=== PATIENT | female | born 1995 | race American Indian/Alaskan Native ===

== ENCOUNTER 2019-01-20 19:36 | Emergency (ER) | payer MEDICAID ==
[2019-01-20] MEDS ORDERED: TYLENOL ONE (19:45)
[2019-01-20] MEDS ORDERED: TYLENOL PO ONE (19:47)
--- NOTE | 2019-01-20 23:05 | Emergency Department Report ---
- General Chief Complaint: Upper Respiratory Infection Stated Complaint: FLU Time Seen by Provider: 01/20/19 22:29 Source: patient Mode of arrival: Ambulatory Limitations: No Limitations - History of Present Illness Initial Comments: 23-year-old -Congol[place] female presents to the emergency room for flulike symptoms to include cough and body aches for 2 days. Patient reports laying flat at night makes her cough worse and her nasal congestion worse. Patient pushes tried cegw-nxl-mnekilg medication which reports has not helped. Patient reports allergy to shellfish currently takes no medications on a daily basis has no past medical history. MD Complaint: cough, rhinorrhea, nasal congestion - Related Data Previous Rx's Medication Instructions Recorded Last Taken Type Ibuprofen [Motrin 600 MG tab] 600 mg PO Q8H PRN #30 tablet 01/20/19 Unknown Rx Oseltamivir Phosphate [Tamiflu] 75 mg PO BID 5 Days #10 capsule 01/20/19 Unknown Rx guaiFENesin/CODEINE [Robitussin AC] 5 ml PO TID PRN #100 oral.liqd 01/20/19 Unknown Rx Allergies Allergy/AdvReac Type Severity Reaction Status Date / Time shellfish derived Allergy Swelling Verified 01/20/19 19:49 ED Review of Systems ROS: Stated complaint: FLU Other details as noted in HPI ED Past Medical Hx - Past Medical History Previous Medical History?: No - Surgical History Past Surgical History?: No - Social History Smoking Status: Never Smoker Substance Use Type: Marijuana - Medications Home Medications: Home Medications Medication Instructions Recorded Confirmed Last Taken Type Ibuprofen [Motrin 600 MG tab] 600 mg PO Q8H PRN #30 tablet 01/20/19 Unknown Rx Oseltamivir Phosphate [Tamiflu] 75 mg PO BID 5 Days #10 capsule 01/20/19 Unknown Rx guaiFENesin/CODEINE [Robitussin AC] 5 ml PO TID PRN #100 oral.liqd 01/20/19 Unknown Rx ED Physical Exam - General Limitations: No Limitations General appearance: alert, in no apparent distress - Head Head exam: Present: atraumatic, normocephalic - Eye Eye exam: Present: EOMI - ENT ENT exam: Present: mucous membranes moist - Neck Neck exam: Present: normal inspection, full ROM - Respiratory Respiratory exam: Present: other (coughing) - Cardiovascular Cardiovascular Exam: Present: tachycardia - GI/Abdominal GI/Abdominal exam: Present: soft, normal bowel sounds - Neurological Exam Neurological exam: Present: alert, oriented X3, normal gait - Psychiatric Psychiatric exam: Present: normal affect, normal mood - Skin Skin exam: Present: warm, dry, intact, normal color. Absent: rash ED Course Vital Signs 01/20/19 01/20/19 01/21/19 19:40 19:42 00:13 Temperature 102.1 F H 102.1 F H 99.6 F Pulse Rate 125 H 112 H 103 H Respiratory 18 18 20 Rate Blood Pressure 116/72 116/72 Blood Pressure 125/73 [Right] O2 Sat by Pulse 98 98 99 Oximetry ED Medical Decision Making - Medical Decision Making Patient has been evaluated for this provider in fast track. Patient was given Tylenol for pain management. Discussed patient with discharge her home on Tamiflu, Robitussin AC and ibuprofen. Critical care attestation.: If time is entered above; I have spent that time in minutes in the direct care of this critically ill patient, excluding procedure time. ED Disposition Clinical Impression: Viral syndrome Disposition: DC-01 TO HOME OR SELFCARE Is pt being admited?: No Does the pt Need Aspirin: No Condition: Stable Instructions: Viral Syndrome (ED) Additional Instructions: Please take medication as prescribed. Please increase her water intake by 3 L a day. If her symptoms persist or gets worse please follow-up with your primary care provider. Prescriptions: guaiFENesin/CODEINE [Robitussin AC] 5 ml PO TID PRN #100 oral.liqd PRN Reason: Cough Ibuprofen [Motrin 600 MG tab] 600 mg PO Q8H PRN #30 tablet PRN Reason: Pain Oseltamivir Phosphate [Tamiflu] 75 mg PO BID 5 Days #10 capsule Referrals: PRIMARY CARE, [Primary Care Provider] - 3-5 Days Forms: Accompanied Note, Work/School Release Form(ED)
[2019-01-21 00:15] VITALS: BP 125/73
== END 2019-01-21 00:16 | disposition home or self-care (01) ==
LOC: ED 19:36
DX: B34.9 Viral infection, unspecified (principal); F12.10 Cannabis abuse, uncomplicated; Z91.013 Allergy to seafood
CPT/HCPCS: 99282

== ENCOUNTER 2019-03-24 09:03 | Emergency (ER) | payer MEDICAID ==
[2019-03-24 09:10] VITALS: BP 117/83
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
== END 2019-03-24 11:31 | disposition home or self-care (01) ==
LOC: ED 09:03
DX: M79.641 Pain in right hand (principal); M79.642 Pain in left hand; F17.200 Nicotine dependence, unspecified, uncomplicated; Z91.013 Allergy to seafood; Y04.8XXA Assault by other bodily force, initial encounter; Y93.89 Activity, other specified; Y92.89 Other specified places as the place of occurrence of the external cause; Y99.8 Other external cause status
CPT/HCPCS: 99283